=== PATIENT | female | born 1970 | race African-American/Black ===

== ENCOUNTER 2019-02-20 13:50 | Emergency (ER) | payer MEDICAID, OTHER ==
[~2019-02-20] VITALS: Ht 157.5 cm; Wt 63.5 kg
[~2019-02-20 13:50] MED LIST: NAPROXEN250 MG ORAL; TRAMADOL HCL50 MG ORAL
--- NOTE | 2019-02-20 14:07 | NUR ---
ED Nurse Note: Pt c/o sore throat x4 days and left ear pain; PA at bedside
--- NOTE | 2019-02-20 14:11 | Emergency Room Report ---
History of Present Illness General Chief Complaint: Earache Source: Patient Present Illness HPI 48-year-old female with no segment past medical history here complaining of 4 days of 10 out of 10 left-sided sore throat is rating to her left ear. Denies any discharge from the ear and denies any direct ear pain. Denies fever and chills, congestion, cough, abdominal pain, nausea vomiting. Has taken Advil for her symptoms are minimal relief. Denies tobacco smoke, alcohol intake. Allergies: Coded Allergies: No Known Allergies (Unverified , 01/14/13) Patient History Past Medical History: see triage record Past Surgical History: unable to obtain Pertinent Family History: none Last Menstrual Period: 01/22/19 Now: No Immunizations: UTD Reviewed Nursing Documentation: PMH: Agreed; PSxH: Agreed Nursing Documentation-PMH Past Medical History: No Stated History Review of Systems All Other Systems: negative except mentioned in HPI Physical Exam Vital Signs Date Time Temp Pulse Resp B/P (MAP) Pulse Ox O2 Delivery O2 Flow Rate FiO2 02/20/19 14:01 97.9 79 20 132/84 (100) 95 Room Air Sp02 EP Interpretation: reviewed, normal General Appearance: normal inspection, well appearing Head: normocephalic, atraumatic ENT: TMs + canals normal, tonsillar exudate Neck: full range of motion, supple, no carotid bruits, other - Left anterior cervical lymphadenopathy Respiratory: normal inspection, chest non-tender, lungs clear, no respiratory distress Cardiovascular #1: normal inspection, normal peripheral pulses, regular rate, rhythm, no gallop, normal capillary refill Gastrointestinal: non tender, soft Genitourinary: no CVA tenderness Musculoskeletal: back normal Neurologic: alert, oriented x3, responsive Psychiatric: normal inspection, judgement/insight normal Skin: no rash Lymphatic: adenopathy - Left anterior cervical Medical Decision Making PA Attestation All my diagnosis and treatment plans were reviewed ad discussed with my supervising physician Dr. Hernandez Diagnostic Impression: Primary Impression: Tonsillitis with exudate ER Course 48-year-old female with no segment past medical history here complaining of 4 days of 10 out of 10 left-sided sore throat is rating to her left ear. Denies any discharge from the ear and denies any direct ear pain. Denies fever and chills, congestion, cough, abdominal pain, nausea vomiting. Has taken Advil for her symptoms are minimal relief. Denies tobacco smoke, alcohol intake. Ddx considered but are not limited to: strep pharyngitis, URI, tonsilitis, peritonsillar absacess, influneza Vital signs: are WNL, pt. is afebrile H&PE are most consistent with: tonsillitis with exudate ORDERS: Amoxicillin ED INTERVENTIONS: None required at this time. DISCHARGE: At this time pt. is stable for d/c to home. Will provide printed patient care instructions, and any necessary prescriptions. Care plan and follow up instructions have been discussed with the patient prior to discharge. Last Vital Signs Date Time Temp Pulse Resp B/P (MAP) Pulse Ox O2 Delivery O2 Flow Rate FiO2 02/20/19 14:01 97.9 79 20 132/84 (100) 95 Room Air Disposition: HOME, SELF-CARE Condition: Stable Scripts Ibuprofen* (MOTRIN*) 600 Mg Tablet 600 MG ORAL Q8H PRN for For Pain, #30 TAB 0 Refills Prov: Eri Rocha 02/20/19 Amoxicillin* (AMOXIL*) 500 Mg Capsule 500 MG ORAL EVERY 12 HOURS for 10 Days, #20 CAP Prov: Eri Rocha 02/20/19 Patient Instructions: Tonsillitis, [id number] Additional Instructions: Take medication as directed follow-up with your primary care provider increase oral hydration Eri Rocha Feb 20, 2019 14:11
[2019-02-20] MEDS ORDERED: IBUPROFEN600 MG ORAL (14:13)
[2019-02-20] MEDS ORDERED: AMOXICILLIN500 MG ORAL (14:13)
[2019-02-20 14:16] VITALS: BP 132/84
[2019-02-20 14:25] VITALS: BP 132/84
--- NOTE | 2019-02-20 14:25 | NUR ---
ER DISCHARGE NOTE: Patient is cleared to be discharged per PA, pt is aox4, on room air, with stable vital signs. pt was given dc and prescription instructions, pt was able to verbalize understanding, pt id band removed. pt is able to ambulate with steady gait. pt took all belongings.
== END 2019-02-20 14:25 | disposition home or self-care (01) ==
LOC: EMR 14:10
DX: J03.90 Acute tonsillitis, unspecified (principal)
CPT/HCPCS: 99282